=== PATIENT | male | born 1975 | race Caucasian/White ===

== ENCOUNTER → 2017-05-03 | Outpatient (CLI) | payer OTHER ==
[2017-05-03 19:12] LABS: ALT 25 U/L (21-72); AST 22 U/L (17-59); Albumin 4.3 g/dL (3.5-5.0); Alkaline Phosphatase 57 U/L (38-126); Anion Gap 10 mmol/L; Blood Urea Nitrogen 16 mg/dL (9-20); Calcium 9.3 mg/dL (8.4-10.2); Carbon Dioxide 25 mmol/L (22-30); Chloride 108 mmol/L (98-107); Cholesterol 164 mg/dL (<200); Glucose 103 mg/dL (74-99); HDL Cholesterol 42 mg/dL (40-60); LDL Cholesterol,Calculated 86 mg/dL (0-99); Potassium 4.6 mmol/L (3.5-5.1); Sodium 143 mmol/L (137-145); Total Bilirubin 0.4 mg/dL (0.2-1.3); Total Protein 7.6 g/dL (6.3-8.2); Triglycerides 179 mg/dL (<150)
[2017-05-03 19:36] LABS: Basophils # (A) 0.1 k/uL (0-0.2); Basophils % (A) 1 %; Eosinophils # (A) 0.2 k/uL (0-0.7); Eosinophils % (A) 3 %; HCT 46.8 % (39.0-53.0); HGB 15.4 gm/dL (13.0-17.5); Lymphocytes # (A) 2.1 k/uL (1.0-4.8); Lymphocytes % (A) 35 %; MCH 28.8 pg (25.0-35.0); MCV 87.2 fL (80.0-100.0); Mean Platelet Volume 8.9; Monocytes # (A) 0.6 k/uL (0-1.0); Monocytes % (A) 9 %; Neutrophils # (A) 2.9 k/uL (1.3-7.7); Neutrophils % (A) 48 %; Platelet Count 261 k/uL (150-450); RBC 5.37 m/uL (4.30-5.90); RDW 12.4 % (11.5-15.5); WBC 6.1 k/uL (3.8-10.6)
== END | disposition home or self-care (01) ==
LOC: MMGSC 10:16
PROVIDERS: ATTEND Family Medicine
DX: Z00.00 Encounter for general adult medical examination without abnormal findings (principal); I10 Essential (primary) hypertension
CPT/HCPCS: 36415; 80053; 80061; 84443; 85025

== ENCOUNTER → 2019-12-23 | Outpatient (CLI) | payer BC | END | disposition home or self-care (01) | LOC: LABWHC1 09:49 | PROVIDERS: ATTEND Family Medicine | DX: Z03.818 Encounter for observation for suspected exposure to other biological agents ruled out (principal) | CPT/HCPCS: U0003; C9803 ==

== ENCOUNTER → 2020-06-17 | Outpatient (CLI) | payer BC ==
--- NOTE | 2020-06-17 19:51 | CONS ---
CONSULTATION DATE OF SERVICE: 06/17/2020 This 45-year-old gentleman has been evaluated in the sleep center for possible obstructive sleep apnea-hypopnea syndrome. HISTORY OF PRESENT ILLNESS/SLEEP-WAKE EVALUATION: Patient's usual sleep schedule on weekdays is from 11:30 p.m. to 5:45 or 6 a.m. and on weekends from 2 a.m. until 10:30 a.m. He does have problems with falling asleep. He has a TV set in the bedroom. He sleeps on the side and stomach positions with loud snoring and witnessed episodes of stopped breathing during sleep. The patient wakes up from sleep with grinding teeth, panic attacks, gasping for air and nocturia. No history of hypnagogic hallucinations, sleep paralysis or cataplexy. In the morning the patient wakes up tired, has difficulties paying attention, falling asleep during the day, has problems with concentration, irritability, depression and anxiety. Sophia Sleepiness Scale is significantly increased at 11. PAST MEDICAL HISTORY: Positive for hypertension, anxiety. PAST SURGICAL HISTORY: Hemorrhoidectomy. MEDICATIONS: 1. Propranolol 120 mg once a day. 2. Amlodipine 10 mg once a day. 3. Alprazolam 1 mg on a p.r.n. basis. SOCIAL HISTORY: Positive for smoking half pack a day for about 20 years. Quit about 2 years ago. FAMILY HISTORY: Sleep apnea. REVIEW OF SYSTEMS: No fevers. No double vision. No recent chest pain. No shortness of breath. No abdominal pain. No bleeding episodes. No blood in the urine. No seizure episodes. Snoring. Sleepiness during the day. PHYSICAL EXAMINATION: GENERAL: A pleasant gentleman without distress. VITAL SIGNS: BP 125/78, HR 61, RR 18, height 6 feet 3-1/2 inches, weight 249.8 pounds, BMI 30.8, temperature 98.5, oxygen saturation at room air 94%. HEENT: PERRLA, EOMI. Evaluation of oropharynx showed tongue protrudes midline. Low position of soft palate. Mallampati III. NECK: Supple. No JVD. Thyroid is not palpable. Wide neck; 17-1/2 inches in circumference. LUNGS: Clear to percussion and to auscultation. Good air exchange. No wheezing or rhonchi. HEART: S1, S2 regular. No murmurs, gallops or rubs. ABDOMEN: Soft and nontender. Bowel sounds are present. No organomegaly appreciated. EXTREMITIES: No clubbing or cyanosis. ASSOCIATE PROFESSOR OF MUSIC: Awake, alert, and oriented X3. Cranial nerves 2 to 7 intact. There is no fasciculation or atrophy. noted. No focal deficits observed. IMPRESSION: 1. Snoring, awakenings from sleep with nocturia, low position of soft palate, Mallampati III, wide neck, 17-1/2 inches in circumference, daytime sleepiness, Sophia Sleepiness Scale is 11; obstructive sleep apnea-hypopnea syndrome. 2. Obesity. 3. Hypertension. 4. History of anxiety. 5. Status post hemorrhoidectomy. PLAN: 1. Home sleep apnea test for evaluation of patient's breathing during sleep. 2. CPAP/BiPAP titration if sleep study confirms obstructive sleep apnea-hypopnea syndrome. 3. Preferable position during sleep on the side. 4. No driving if patient feels any sleepiness. 5. I will see patient for follow up visit to explain results of testing and following plan. Thank you very much for allowing me to participate in the management of your patient. Sincerely, Madhu Cox MD, PhD, FAASM Diplomat of [employer] Account Underwriter of [facility] [place] MMODL / ANGELICAN: [id number] /
== END ==
LOC: SLEEP 15:52
PROVIDERS: ATTEND Internal Medicine
DX: G47.33 Obstructive sleep apnea (adult) (pediatric) (principal); E66.9 Obesity, unspecified; Z68.30 Body mass index [BMI] 30.0-30.9, adult; I10 Essential (primary) hypertension; Z98.890 Other specified postprocedural states
CPT/HCPCS: 99211

== ENCOUNTER → 2020-09-01 | Outpatient (CLI) | payer BC ==
--- NOTE | 2020-09-01 22:26 | SFUN ---
SLEEP CENTER FOLLOW UP NOTE DATE OF SERVICE: 09/01/2020 45-year-old gentleman has been followed in Sleep Center for treatment of obstructive sleep apnea-hypopnea syndrome. Recently the patient had a home sleep apnea test and I discussed results of sleep study with patient in detail. Sleep study indicated mild obstructive sleep apnea-hypopnea syndrome but because patient has symptoms of excessive daytime sleepiness, hypertension and anxiety treatment is indicated and he subsequently was started on treatment with CPAP. Today is his first visit after he was started usage his CPAP equipment. The patient feels significant improvements according to him regarding to his sleep and quality of feeling during the day. He feels more alert, has more energy and sleeps better. [place] Sleepiness Scale today is 12, which is still slightly increased. I checked his CPAP unit. Range of the pressure of 5-15 on automatic regimen. Average 8.2 cm of water. Usage is 29 out of 30 nights and 28 out of 30 nights for more than 4 hours with average usage is 6.4 hours per night. Leak is 32 L/minute which is slightly higher, but the apnea-hypopnea index is totally normal is 1.1. MEDICATIONS: Propranolol 120 mg once a day, amlodipine 10 mg once a day. Alprazolam 1 mg on p.r.n. basis. PHYSICAL EXAMINATION: GENERAL: Patient in no distress. BP 124/78, HR 60, RR 15, weight 251.0, temperature 97.2, oxygen saturation at room air 96%. HEENT: PERRLA, EOMI, evaluation of oropharynx showed low position of soft palate. Mallampati 3. NECK: Supple, no JVD. Thyroid is not palpable. LUNGS: Clear to percussion and to auscultation. Good air exchange. No wheezing or rhonchi. HEART: S1, S2 regular. No murmurs, gallops, or rubs. ABDOMEN: Soft and nontender. Bowel sounds are present. No organomegaly appreciated. EXTREMITIES: No clubbing or cyanosis. DIETETIC ASSISTANT: Awake, alert, and oriented X3. Cranial nerves 2 to 7 intact. There is no fasciculation or atrophy. noted. No focal deficits observed. IMPRESSION: 1. Obstructive sleep apnea-hypopnea syndrome. Patient demonstrated great compliance with treatment benefitting from treatment. 2. Obesity. 3. Hypertension. 4. History of anxiety. 5. Status post hemorrhoidectomy. PLAN: 1. Patient will continue to use PAP equipment every night for the whole night. 2. Sleep hygiene with regular time in bed for at least 7-1/2 to 8 hours. 3. Precautions related to driving. No driving if feeling sleepiness. 4. I will maintain all necessary prescription for PAP supplies including mask, tube, filters. 5. Watching weight. 6. Follow-up visit in 6 months or earlier if patient has any problems. I discussed with the patient the correct position of the machine and necessity to make the water chamber dry in the morning after he finishes using CPAP. I spent with the patient in documentation more than 30 minutes. Thank you very much for allowing me to participate in management of your patient. Sincerely, Madhu Cox MD, PhD, FAASM Diplomat of [place] [employer] [place] [employer] Switchboard Wire Worker Helper of [facility] [place] MMBIBIL / ANGELICAN: [id number] /
== END ==
LOC: SLEEP 16:22
PROVIDERS: ATTEND Internal Medicine
DX: G47.33 Obstructive sleep apnea (adult) (pediatric) (principal); E66.9 Obesity, unspecified; I10 Essential (primary) hypertension; F41.9 Anxiety disorder, unspecified; Z98.890 Other specified postprocedural states; Z79.899 Other long term (current) drug therapy; Z99.81 Dependence on supplemental oxygen